=== PATIENT | female | born 1945 | race Caucasian/White ===

== ENCOUNTER 2019-06-28 13:24 | Emergency (ER) | payer OTHER, SELFPAY ==
[2019-06-28 13:31] VITALS: BP 128/65; PULSE 69; RESP 16; TEMP 36.3; O2SAT 97
--- NOTE | 2019-06-28 13:34 | ED.GENADUL_ITS ---
Discharge Plan Disposition Patient Disposition: HOME Condition: Fair Discharge Details Chief Complaint: Orthopedic Clinical Impression: Arthritis of knee Primary Care Provider: CELESTE DIXON ED Provider: Rachel Holm Home Meds and New Rx's Prescriptions: Continued multivitamin [Multiple Vitamins] Tablet 1 tab PO DAILY RF: 0 escitalopram oxalate 10 mg Tablet 5 mg PO DAILY RF: 0 vitamin B complex Tablet 1 tab PO DAILY RF: 0 Ha[place]hill-3 350 mg-235 mg- 90 mg-597 mg Capsule,Delayed Release(Dr/Ec) 1 cap RF: 0 Discharge Instructions Instructions: Osteoarthritis (ED), Hinged Knee Brace (ED) Additional Instructions: You have significant also arthritis noted on your x-ray. You may use the hinged knee brace to help with discomfort. Please take this off to perform some activities and range of motion as discussed. Please contact your primary care to discuss referral for orthopedics. If you develop fever/chills, increased pain or the new/worsening symptoms please seek care urgently. May use Tylenol and ibuprofen as needed for discomfort. Referrals: CELESTE DIXON [Primary Care Provider] - Medical Decision Making Patient presents today with persistent right knee pain. She reports the pain is progressively been worsening over the past several years the pain is now to the point that is limiting her activities. She indicates the medial aspect of the knee is area of discomfort. She denies any fevers or chills. No recent trauma. States is worse upon awakening in the morning. Worse with sitting, standing, sitting in cars, going downstairs. On exam, patient has no effusion, erythema, warmth. No indications of infection. Ligamentously intact. Her patellas are tracking laterally bilaterally. I am concerned given their impression for osteoarthritis. Will obtain imaging. X-ray reviewed by myself significant for severe DJD, particularly to the medial joint line. Discussed these findings with the patient. Patient would like to follow-up with orthopedics when she returns home. We will place the patient hinged knee brace to help with some of her discomfort. I encouraged water exercises. Encouraged weight loss. Encouraged gentle range of motion, exercises were given. I advised Tylenol and ibuprofen as needed for discomfort. She will contact primary care regarding referral to prior orthopedics in [place]. We discussed new/worsening symptoms that should prompt her to seek care emergently once again. All of her questions and concerns were addressed and she is in agreement this plan. HPI General Mode of arrival: ambulatory . Date/Time Provider Initiated Documentation: 06/28/19 13:34 . Limitations to Documentation: no limitations . Information obtained by: patient and RN notes reviewed . History of Present Illness 74 year old F presents to the emergency department with the chief complaint of right knee pain, described as moderate, with intensity rated at 7. Quality is described as aching, and is localized to the right and lower extremity. Patient reports no radiation. Patient started experiencing this year(s) and it has been intermittent. No relieving factors improve symptom(s), Movement worsens symptoms (worse in the AM) . Patient notes no other symptoms.. Patient did receive the following treatments prior to arrival, none Related Data Home Medications Medication Instructions Recorded Confirmed Ha[place]hill-3 1 cap 06/28/19 escitalopram oxalate 5 mg PO DAILY 06/28/19 06/28/19 multivitamin [Multiple Vitamins] 1 tab PO DAILY 06/28/19 06/28/19 vitamin B complex 1 tab PO DAILY 06/28/19 06/28/19 Allergies Allergy/AdvReac Type Severity Reaction Status Date / Time No Known Allergies Allergy Unverified 06/28/19 13:34 General Stated Complaint: Orthopedic AMANDA: 4 Review of Systems Constitutional Reports as per HPI, Denies chills, Denies fever(s), Denies headache(s) and Denies weakness ENT Denies headache(s) Cardiovascular Reports as per HPI Respiratory Reports as per HPI and Denies cough Musculoskeletal Reports as per HPI and Denies tingling Integumentary/Breasts Reports as per HPI, Denies rash and Denies wounds Neurologic Reports as per HPI, Denies headache(s), Denies tingling, Denies paresthesias and Denies weakness Exam Const General: cooperative, healthy appearing, comfortable, no acute distress, well developed and well groomed Nutritional Appearance: average body habitus and well nourished Orientation: alert and awake Resp Effort & Inspection: normal respiratory effort, able to speak in complete sentences and no respiratory distress Cardio Rate: regular rate Rhythm: regular rhythm Skin General skin exam: no rashes or lesions noted Lesions: no lesions Rashes: no rashes Trauma: no lacerations or abrasions Neuro General: alert and awake Cognition: normal cognition Speech: speech normal Gait: normal gait Motor: muscle tone normal throughout Sensory Exam: no sensory deficits noted Extrem Right lower extremity: normal to inspection, full ROM, normal capillary refill, no joint enlargement and knee Details: normal to inspection, normal ROM and knee ligament exam normal Details: anterior drawer test normal, posterior drawer test normal, valgus stress test normal and varus stress test normal; no tenderness, no swelling, no abrasions, no lacerations, no deformity and no unusual warmth; no edema Psych Appearance: grossly normal and well kempt Mental Status: mental status grossly normal Speech and Movement: speech and movement normal Course Vital Signs Temperature 36.3 C L 06/28/19 13:31 Pulse 69 06/28/19 13:31 Respiratory Rate 16 06/28/19 13:31 Blood Pressure 128/65 06/28/19 13:31 Pulse Oximetry 97 06/28/19 13:31 Temperature 36.3 C L 06/28/19 13:31 Temperature Source Skin 06/28/19 13:31 Pulse 69 06/28/19 13:31 Respiratory Rate 16 06/28/19 13:31 Respiratory Effort Non-Labored 06/28/19 13:31 Blood Pressure 128/65 06/28/19 13:31 Blood Pressure Position Sitting 06/28/19 13:31 Pulse Oximetry 97 06/28/19 13:31 Oxygen Delivery Method Room Air 06/28/19 13:31 Oxygen Flow Rate 0 06/28/19 13:31 Pain Level 7 06/28/19 13:31
--- NOTE | 2019-06-28 14:52 | DI.RAD_ITS ---
SYMPTOMS/DIAGNOSIS: PATELLOFEMORAL PAIN RIGHT KNEE: Narrowing of the medial femorotibial joint space is demonstrated. There is articular sclerosis and periarticular hypertrophic spurring and there are also moderately severe degenerative changes involving the patellofemoral joint. SUMMARY: Severe DJD involving the right knee is demonstrated.
[2019-06-28] MEDS: Ibuprofen 600 MG TAB PO (15:28)
== END 2019-06-28 15:38 | disposition home or self-care (01) ==
PROVIDERS: Emergency Provider Physician Assistant
DX: M17.11 Unilateral primary osteoarthritis, right knee (principal)
CPT/HCPCS: 29505; 99283; 73564; L1810